=== PATIENT | female | born 1935 | race Caucasian/White ===

== ENCOUNTER → 2017-07-15 | Outpatient (CLI) | payer OTHER ==
[~2017-07-15] MED LIST: ASPEC325 PO; BIOTCAP2 PO; CALC-20 PO; CHOL100010 PO; CLB200 PO; ESTR1CRE PV; HYDR-5688 PO; MULT-614 PO; OMEP20TA PO; PSYL55.43 PO; ZOLE5INJ IV; [UNRECOGNIZED DRUG - OTHER] PO
--- NOTE | 2017-07-16 07:57 | MAMMOGRAPHY REPORT ---
BILATERAL DIGITAL SCREENING MAMMOGRAM TOMOSYNTHESIS WITH CAD: 07/15/2017 CLINICAL HISTORY: Routine screening. Patient has no complaints. TECHNIQUE: Bilateral breast tomosynthesis in addition to standard 2D mammography was performed. Curre nt study was also evaluated with a Computer Aided Detection (CAD) system. COMPARISON: Comparison is made to exams dated: 06/25/2016 mammogram, 05/12/2015 mammogram, 05/11/2014 m ammogram, 05/03/2013 mammogram, 04/07/2012 mammogram, and 04/03/2010 mammogram - [facility] enter. BREAST COMPOSITION: The tissue of both breasts is almost entirely fatty. FINDINGS: There is asymmetry of the size of the breasts, left greater than right, likely secondary to prior posttreatment changes in the right breast. There is expected architectural distortion in the upper outer quadrant of the right breast at the site of prior lumpectomy. There is stable nodularity in the anterior periareolar right breast. Benign rim calcifications throughout the right breast and vascular calcification in the left breast. No suspicious mass, architectural distortion or cluster of new, suspicious microcalcifications is seen. IMPRESSION: ACR BI-RADS CATEGORY 1: NEGATIVE There is no mammographic evidence of malignancy. A 1 year screening mammogram is recommended. The pa tient will receive written notification of the results. Approximately 10% of breast cancers are not detected with mammography. A negative mammographic report should not delay biopsy if a clinically suggestive mass is present. Sandy Diaz M.D. ay/:07/15/2017 15:58:20 Legal Secretary Receptionist: Pat ALEJANDRO(R)(M), [facility] letter sent: Normal 1/2 BI-RADS Code: ACR BI-RADS Category 1: Negative
== END | disposition home or self-care (01) ==
LOC: C.MAMM 09:31
PROVIDERS: ATTEND Obstetrics & Gynecology
DX: Z12.31 Encounter for screening mammogram for malignant neoplasm of breast (principal); Z85.3 Personal history of malignant neoplasm of breast